=== PATIENT | male | born 1995 | race Native Hawaiian/Other Pacific Islander ===

== ENCOUNTER 2017-02-08 02:17 | Inpatient (IN) | payer OTHER ==
[2017-02-08] MEDS ORDERED: RX INFO: IV CONTRAST WAS GIVEN 1 EACH MISC MISCELLANE PRN (02:39)
[2017-02-08] MEDS ORDERED: ETOMIDATE 2 MG/ML 10 ML VIAL IVP STA (02:40)
[2017-02-08] MEDS ORDERED: SUCCINYLCHOLINE CHLORIDE VIAL 200 MG/10 ML VIAL IV STA (02:40)
[2017-02-08] MEDS ORDERED: SODIUM CHLORIDE 0.9% 1,000 ML IV STA (02:40)
[2017-02-08] MEDS ORDERED: PROPOFOL 500 MG in EMPTY BAG 1 BAG IV ONE ×2 (02:46→04:50)
--- NOTE | 2017-02-08 03:07 | XR ---
EXAM: XR Chest, 1 View CLINICAL HISTORY: Reason: intubation TECHNIQUE: Frontal view of the chest. COMPARISON: No relevant prior studies available. FINDINGS/IMPRESSION: Tip of endotracheal tube about 15 mm above the inferior bronson. Retraction of the tube by 2-3 cm may result in more ideal positioning. Enteric tube with distal portion subdiaphragmatic off the film. Low lung volumes. Cardiac and mediastinal silhouette accentuated by technique and low lung volumes. Indeterminate. Atelectasis. No overt edema or consolidation.
[2017-02-08 03:18] LABS: Basophils % (A) 1 %; CH 28.7; CHCM 34.1; Eosinophils % (A) 0 %; HCT 45.7 % (39.0-53.0); HDW 2.53; HGB 15.2 gm/dL (13.0-17.5); Luc % (Auto) 1; Lymphocytes # (A) 1.2 k/uL (1.0-4.8); Lymphocytes % (A) 17 %; MCH 28.1 pg (25.0-35.0); MCHC 33.2 g/dL (31.0-37.0); MCV 84.8 fL (80.0-100.0); Mean Platelet Volume 7.3; Monocytes # (A) 0.4 k/uL (0-1.0); Monocytes % (A) 5 %; Neutrophils # (A) 5.3 k/uL (1.3-7.7); Neutrophils % (A) 76 %; RBC 5.39 m/uL (4.30-5.90); RDW 15.8 % (11.5-15.5); WBC (Perox) 6.83
[2017-02-08 03:21] LABS: ABG PCO2 35 mmHg (35-45); ABG PH 7.39 (7.35-7.45)
[2017-02-08 03:22] LABS: ABG Base Excess -3.5 mmol/L; ABG HCO3 21 mmol/L (21-25); ABG PO2 >400 mmHg (83-108); ABG TCO2 22 mmol/L (19-24)
[2017-02-08 03:26] LABS: ALT 36 U/L (21-72); AST 31 U/L (17-59); Acetaminophen <10.0 ug/mL; Alkaline Phosphatase 76 U/L (38-126); Anion Gap 17 mmol/L; Blood Urea Nitrogen 15 mg/dL (9-20); Calcium 8.9 mg/dL (8.4-10.2); Carbon Dioxide 20 mmol/L (22-30); Chloride 110 mmol/L (98-107); Glucose 110 mg/dL (74-99); Non-African American GFR(MDRD) >60 (>60 ml/min/1.73 sqM); Salicylate <1.0 mg/dL; Sodium 147 mmol/L (137-145); Total Bilirubin 0.8 mg/dL (0.2-1.3); Total Protein 7.1 g/dL (6.3-8.2)
[2017-02-08 03:28] LABS: Alcohol 197 mg/dL
[2017-02-08] MEDS ORDERED: LORazepam 2 MG/ML SYRINGE IV STA (03:41)
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
--- NOTE | 2017-02-08 04:14 | CT ---
EXAM: CT Head Without Intravenous Contrast CLINICAL HISTORY: Reason: unresponsive TECHNIQUE: Axial computed tomography images of the head/brain without intravenous contrast. DLP is 1090.40 mGy-cm. This CT exam was performed using one or more of the following dose reduction techniques: automated exposure control, adjustment of the mA and/or kV according to patient size, and/or use of iterative reconstruction technique. COMPARISON: No relevant prior studies available. FINDINGS: Brain: No hemorrhage. No mass effect. Salas white junction preserved. Ventricles: Age appropriate Sinuses: Well aerated as visualized. Mastoid air cells: Well aerated as visualized. IMPRESSION: No acute intracranial findings
[2017-02-08] MEDS ORDERED: ARTIFICIAL TEARS OINTMENT 3.5 GM TUBE BOTH EYES PRN (04:48)
[2017-02-08] MEDS ORDERED: NALOXONE 0.4 MG/ML 1 ML VIAL IV PRN (04:48)
[2017-02-08 06:06] LABS: Glucose,Whole Blood 109 mg/dL (75-99)
[2017-02-08] MEDS ORDERED: PROPOFOL 500 MG in EMPTY BAG 1 BAG IV SCH (07:45)
[2017-02-08] MEDS ORDERED: LEVALBUTEROL NEB (CONC) 1.25 MG/0.5 ML AMP INHALATION SCH (08:00)
[2017-02-08] MEDS ORDERED: IPRATROPIUM 0.5 MG/2.5 ML NEBU INHALATION SCH (08:00)
[2017-02-08 08:39] LABS: ABG HCO3 22 mmol/L (21-25); ABG PCO2 40 mmHg (35-45); ABG PH 7.35 (7.35-7.45); ABG PO2 225 mmHg (83-108); ABG TCO2 23 mmol/L (19-24)
[2017-02-08] MEDS ORDERED: CHLORHEXIDINE GLUCONATE 15 ML CUP MUCOUS MEM SCH (09:00)
[2017-02-08] MEDS ORDERED: FAMOTIDINE 20 MG/2 ML VIAL IV SCH (09:00)
[2017-02-08 11:55] VITALS: BMI 30.4
[2017-02-08 12:50] VITALS: TEMP 98.4
--- NOTE | 2017-02-08 13:36 | CONS ---
ADDENDUM: Critical care time 38 minutes. QING
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
[2017-02-08 15:10] VITALS: BP 107/59; PULSE 79; RESP 20
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
== END 2017-02-08 15:47 | disposition home or self-care (01) | DRG 917 ==
LOC: EC 02:17 → 6ICU 04:51
PROVIDERS: ADMIT Hospitalist; ATTEND Hospitalist
PROC: 0BH17EZ Insertion of Endotracheal Airway into Trachea, Via Natural or Artificial Opening (ICD-10-PCS; principal; 2017-02-08)
PROC: 5A1935Z Respiratory Ventilation, Less than 24 Consecutive Hours (ICD-10-PCS; 2017-02-08)
PROC: 0D9670Z Drainage of Stomach with Drainage Device, Via Natural or Artificial Opening (ICD-10-PCS; 2017-02-08)
DX: T51.0X4A Toxic effect of ethanol, undetermined, initial encounter (principal); J96.91 Respiratory failure, unspecified with hypoxia; G92 Toxic encephalopathy; F10.129 Alcohol abuse with intoxication, unspecified; Z78.1 Physical restraint status; Z71.41 Alcohol abuse counseling and surveillance of alcoholic; Z90.49 Acquired absence of other specified parts of digestive tract; Z87.891 Personal history of nicotine dependence; Y90.6 Blood alcohol level of 120-199 mg/100 ml
CPT/HCPCS: 31500; 36415; 36600; 43753; 70450; 80053; 80306; 80320; 82805; 83520; 85025; 93005; 94002; 94640; 96361; 96365; 96375; 99285